=== PATIENT | male | born 1975 ===

== ENCOUNTER 2018-02-08 11:00 | Emergency (ER) | payer OTHER, BC ==
[2018-02-08 11:20] VITALS: BMI 30.7
[2018-02-08 11:41] VITALS: RESP 18
--- NOTE | 2018-02-08 12:17 | ED PDOC ---
Arrival/HPI - General Chief Complaint: Lower Extremity Problem/Injury Time Seen by Provider: 02/08/18 11:49 Historian: Patient - History of Present Illness Narrative History of Present Illness (Text): 02/08/18 11:50 42 year old male, with no significant past medical history, presents to the Emergency department complaining of left knee discomfort s/p mechanical injury sustained prior to arrival. Patient states he was climbing a ladder when his left foot slipped through the first and second step causing him to fall on his left knee. Patient states hearing a noise withe incident and experiencing immediate discomfort to the area. Patient denies hitting his head or any loss of consciousness. Patient denies any other associated complaints. Patient denies any fevers, chills, headache, dizziness, chest pain, shortness of breath, cough, abdominal pain, nausea, vomiting, diarrhea, back pain, neck pain, or any other complaints. Time/Duration: Prior to Arrival Symptom Onset: Sudden Symptom Course: Unchanged Quality: Aching Activities at Onset: Light Context: Work Past Medical History - Provider Review Nursing Documentation Reviewed: Yes - Psychiatric Hx Substance Use: No Family/Social History - Physician Review Nursing Documentation Reviewed: Yes Family/Social History: Unknown Family HX Smoking Status: n Hx Alcohol Use: No Hx Substance Use: No Allergies/Home Meds Allergies/Adverse Reactions: Allergies No Known Allergies Allergy (Verified 02/08/18 11:20) Review of Systems - Physician Review All systems were reviewed & negative as marked: Yes - Review of Systems Gastrointestinal: absent: Abdominal Pain Musculoskeletal: Arthralgias (left knee pain). absent: Back Pain Neurological: absent: Headache Physical Exam - Physical Exam Narrative Physical Exam (Text): 02/08/18 11:50 Constitutional: No acute distress. Head: Normocephalic. Atraumatic. Eyes: PERRL. ENT: Moist mucous membranes. Neck: Supple. Cardiovascular: Regular rate. Chest: No tenderness. Respiratory: Clear to auscultation bilaterally. GI: Soft. Nontender. Nondistended. Back: No CVA tenderness. Musculoskeletal: Medial tenderness to left knee. Full ROM active and passive. Negative anterior posterior drawer test. Skin: No rash. Neurologic: Alert, no focal deficit. Vital Signs Reviewed: Yes Vital Signs Temp Pulse Resp BP Pulse Ox 02/08/18 11:20 98.8 F 79 18 152/107 H 97 Temperature: Afebrile Blood Pressure: Hypertensive Pulse: Regular Respiratory Rate: Normal Appearance: Positive for: Well-Appearing, Non-Toxic, Comfortable Pain Distress: None Mental Status: Positive for: Alert and Oriented X 3 Medical Decision Making ED Course and Treatment: 02/08/18 11:50 Impression: 42 year old male presents to the Emergency department complaining of left knee discomfort. Differential Diagnosis included but are not limited to: fracture vs. strain Plan: -- Toradol -- X-ray of Left Knee -- Reassess and disposition Prior Visits: Notes and results from previous visits were reviewed. Progress Notes: 02/08/18 11:50 Patient was offered crutches and knee brace in the ED but refused. XR no fracture or dislocation. - RAD Interpretation Radiology Orders: 02/08/18 11:49 KNEE LEFT 2 VIEWS (AP & LAT) [RAD] Stat - Medication Orders Current Medication Orders: Discontinued Medications Ketorolac Tromethamine (Toradol) 60 mg IM STAT STA Stop: 02/08/18 11:50 - Scribe Statement The provider has reviewed the documentation as recorded by the Scribe Victorina Wilkinson. All medical record entries made by the Scribe were at my direction and per sonally dictated by me. I have reviewed the chart and agree that the record accurately reflects my personal performance of the history, physical exam, medical decision making, and the department course for this patient. I have also personally directed, reviewed, and agree with the discharge instructions and disposition. Disposition/Present on Arrival - Present on Arrival Any Indicators Present on Arrival: No History of DVT/PE: No History of Uncontrolled Diabetes: No Urinary Catheter: No History of Decub. Ulcer: No History Surgical Site Infection Following: None - Disposition Have Diagnosis and Disposition been Completed?: Yes Diagnosis: Knee pain Disposition: HOME/ ROUTINE Disposition Time: 13:59 Patient Plan: Discharge Patient Problems: Current Active Problems Problem Status Onset Knee pain Acute Condition: STABLE Discharge Instructions (ExitCare): Meniscal Tear (DC), Knee Sprain (DC) Prescriptions: Ibuprofen [Motrin] 600 mg PO Q6 #25 tab Referrals: Nola Abdi MD [Staff Provider] - Follow up with primary Forms: [facility] ([place])
--- NOTE | 2018-02-08 14:05 | RAD ---
Date of service: 02/08/2018 PROCEDURE: Left Knee Radiographs. HISTORY: Pain. COMPARISON: None. FINDINGS: BONES: Normal. No fracture. JOINTS: Normal. No osteoarthritis. JOINT EFFUSION: None. OTHER FINDINGS: None. IMPRESSION: Normal radiographs of the left knee.
[2018-02-08 14:58] VITALS: BP 145/78; PULSE 72; TEMP 98.2; O2SAT 99
== END 2018-02-08 14:15 | disposition home or self-care (01) ==
LOC: ED 11:00
DX: M25.562 Pain in left knee (principal)
CPT/HCPCS: 73560; 96372; 99285; J1885